=== PATIENT | male | born 2005 | race Caucasian/White ===

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

== ENCOUNTER 2023-05-08 10:05 | Emergency (ER) | payer MEDICAID ==
[~2023-05-08] VITALS: Ht 167.6 cm; Wt 67.6 kg
[~2023-05-08 10:05] MED LIST: CLOT1CRE82 TP
[2023-05-08 10:07] VITALS: BP 133/89; PULSE 90; RESP 16; TEMP 97.9; O2SAT 99
[2023-05-08] MEDS: SILVER NITRATE APPLICATOR 1 EA SWAB TP ONE (10:50)
[2023-05-08] MEDS: PHENYLEPHRINE 1% 15 ML BTL NS ONE (10:50)
[2023-05-08] MEDS ORDERED: FLONAS NS (11:56)
[2023-05-08 12:16] VITALS: BP 133/89; PULSE 90; RESP 16; TEMP 97.9; O2SAT 99
== END 2023-05-08 12:19 | disposition home or self-care (01) ==
LOC: MED 10:05
DX: R04.0 Epistaxis (principal); Z79.899 Other long term (current) drug therapy
CPT/HCPCS: 99283